=== PATIENT | male | born 2000 | race Caucasian/White ===

== ENCOUNTER 2023-04-25 16:13 | Outpatient (CLI) | payer BC, SELFPAY | END 2023-04-25 16:14 | disposition home or self-care (01) | PROVIDERS: PCP Family Medicine; Visit Provider Family Medicine | DX: E10.9 Type 1 diabetes mellitus without complications (principal); R53.83 Other fatigue | CPT/HCPCS: 80048; 80061; 84443 ==

== ENCOUNTER 2024-02-06 13:49 | Outpatient (CLI) | payer BC, SELFPAY ==
[2024-02-06 21:48] LABS: Creatinine Urine 94.8 mg/dL
[2024-02-06 21:53] LABS: Microalbumin Creatinine Ratio 10 mg/g (0-30); Microalbumin Urine 1 mg/dL
== END 2024-02-06 13:50 | disposition home or self-care (01) ==
PROVIDERS: PCP Family Medicine; Visit Provider Family Medicine
DX: E05.00 Thyrotoxicosis with diffuse goiter without thyrotoxic crisis or storm (principal); E10.9 Type 1 diabetes mellitus without complications; Z79.4 Long term (current) use of insulin
CPT/HCPCS: 80048; 82043; 82570; 84439; 84443

== ENCOUNTER 2024-09-16 20:42 | Emergency (ER) | payer BC, SELFPAY ==
[2024-09-16] VITALS (20 sets, daily range): BP systolic 148; BP diastolic 88; PULSE 96–122; RESP 10–113; TEMP 38.1; O2SAT 95–99; BMI 22.0
--- OUTSIDE RECORDS SUMMARY | 2024-09-16 20:44 | XMS_ITS | Clinical Summary ---
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 1 box 0 4 Active CONTOUR NEXT STRIPS strip USING UP TO 6 TEST STRIPS PER DAY TO CHECK BLOOD SUGAR. USE WITH MEDTRONIC PUMP 11 6 Active ergocalciferol (VITAMIN D2; DRISDOL) 50,000 unit capsule TK 1 C PO Q WEEK 0 6 Active NOVOLOG U-100 INSULIN ASPART 100 unit/mL injection 8 Active ACCU-CHEK FASTCLIX TESTS 6 TIMES PER DAY 11 8 Active methIMAzole (TAPAZOLE) 5 mg tablet 8 Active VITAMIN D-3 2,000 unit capsule TK 1 C PO ONCE A DAY 2 9 Active naproxen (NAPROSYN) 500 mg tablet Take 500 mg by mouth 2 times daily. 1 Active Glucagon Emergency Kit, human, 1 mg injection INJECT 1MG IN THE MUSCLE FOR SEVERE HYPOGLYCEMIA 1 Active Active Problems Problem Noted Date Diagnosed Date Onychocryptosis 06/29/2016 Diabetes mellitus type 1 01/17/2013 Overview (11/09/2013): diagnosed age 13 -managed by [facility] Immunizations Immunization Administration Dates Next Due AMB Influenza, IIV3 (Age >=3 years)(Flu Clinic O nly) 02/04/2009 DTaP 06/11/2004,01/30/2002 [id number] (Pediarix) 2000,2000 HIB PRP-T (ActHIB,Hiberix) 2000,2000 HIB-HepB (Comvax) 01/30/2002 Hepatitis A (Peds) 11/09/2013 Inactivated Polio Vaccine 06/11/2004 Influenza A (H1N1), Inactivated (Age >=3 Years) 02/04/2009,02/04/2009 Influenza, IIV4 11/09/2013,02/04/2009 MENINGOCOCCAL VACCINE 2 VIAL [id number] (MENVEO) 0 11/09/2013 MMR 06/11/2004,01/30/2002 Tdap 10/24/2012 Varicella Vaccine 10/24/2012,06/11/2004 Family History Medical History Relation Name Comments Other Maternal Grandmother lupus Thyroid Disease Maternal Grandmother hypo Heart Disease Maternal Uncle Relation Name Status Comments Maternal Grandmother Maternal Uncle Social History Tobacco Use Types Packs/Day Years Used Date Smoking Tobacco: Passive Smo ke Exposure - Never Smoker Smokeless Tobacco: Never Comments:mom smokes in the h ouse, tries not too Alcohol Use Standard Drinks/Week Comments No 0 (1 standard drink = 0.6 oz pur e alcohol) Sex and Gender Information Value Date Recorded Sex Assigned at Not on file Legal Sex Male 5:42 AM 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 Gender Identity Not on file Sexual Orientation Not on file 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 Industry 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 FMS Not on file Not on file Not on file Obstetrics History Last Filed Vital Signs Vital Sign Reading Time Taken Comments Blood Pressure 160/101 01/07/2021 7:22 PM 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 Pulse 74 01/07/2021 7:22 PM 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 Temperature 37 C (98.6 F) 01/07/2021 7:22 PM 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 Respiratory Rate 16 01/07/2021 7:22 PM 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 Oxygen Saturation 97% 01/07/2021 7:22 PM 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 Inhaled Oxygen Concentration - - Weight 68 kg (150 lb) 01/07/2021 7:22 PM 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 Height 172.7 cm (5' 8) 01/07/2021 7:22 PM 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 Body Mass Index 22.81 01/07/2021 7:22 PM 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 Plan of Treatment Health Maintenance Due Date Last Done Comments Depression screening for age 12+ 2012 HIV for age 15-65 01/15/2015 HPV series for age 9-26 (1 - Male 3-dose series) 01/15/2015 BMI (ht and wt on same day) for age 18+ 01/15/2018 Hepatitis C screening for age 18-79 01/15/2018 Pneumococcal series for age 6-49 (1 of 2 - PCV) 01/15/2019 Tetanus booster 10/24/2022 10/24/2012 COVID-19 vaccine series (3 - season) 2023 04/07/2022, 03/16/2022 Influenza Vaccine (#1) 2024 4, 02/04/2009, 02/04/2009 Hepatitis B series for 19+ Completed 01/30, 2000, 2000 Insurance [facility] [place] Care Teams 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
--- NOTE | 2024-09-16 21:11 | ED.NURSE ---
Pt has vomited all over his room, doctor is aware of high blood sugar reading from POC glucose. Pt has detached his blood sugar monitor and it is sitting by him on his table in his room.
[2024-09-16 21:14] LABS: Hematocrit 43.1 % (37.0-53.0); Hemoglobin* 14.9 gm/dL (13.5-17.5); Immature Granulocytes Abs Auto 0.01 K/uL (0.00-0.30); Immature Granulocytes Pct Auto 0.1 %; Mean Corpuscular HGB Conc 35 gm/dL (32-36); Mean Corpuscular Hemoglobin 32 pg (26-34); Mean Corpuscular Volume 92 fL (80-100); RDW Coefficient of Variation % 11.7 % (11.5-15.5); Red Blood Count 4.69 m/uL (4.30-5.90); White Blood Count* 9.16 K/uL (4.50-11.00)
[2024-09-16 21:15] LABS: Appearance Urine Clear (Clear)
[2024-09-16 21:16] LABS: Lymphocytes Absolute Auto 1.20 K/uL (0.90-2.90); Slide Review Reflex No
--- NOTE | 2024-09-16 21:19 | ED_ITS ---
HPI - General Adult General Date Seen: 09/16/24 Chief complaint: Diabetic Related Problem Stated complaint: low blood sugar Time Seen by Provider: 09/16/24 20:59 Source: patient Mode of arrival: ambulatory Limitations: no limitations History of Present Illness HPI narrative: Patient is a 24-year-old male with a history of type 1 diabetes mellitus who has an insulin pump presenting to the emergency department for hypoglycemia. He states for the past day his monitor keeps reading between 50 and 70 despite him trying to carb load and not given him any further basal doses of insulin. He states his pump has not been given any insulin either due to the low blood sugar. He has been feeling lightheaded and due to this persisting decided to come to the emergency department. Here his blood sugar got to as low as 40 according to his monitor. He denies any chest pain or shortness of breath. Does have a fever in triage of 100.5. Denies headache, vision changes, abdominal pain, diarrhea, constipation. States he changes his injection site every 3-5 days and last changed 3 days ago. Has never had issues like this before he states. Does not see an crochet beader but does follow-up with his primary care provider for all blood sugar issues. Related Data Home Medications ?Medication ?Instructions ?Recorded ?Confirmed blood sugar diagnostic (Contour #10 ea 04/25/23 Next Test Strips) Previous Rx's ?Medication ?Instructions ?Recorded insulin aspart U-100 100 unit/mL 100 unit subcut QDAY #40 mL 02/06/24 subcutaneous solution metoclopramide HCl 10 mg tablet 5 - 10 mg (0.5 - 1 x 1 0 mg) PO BID 02/06/24 PRN nausea and vomiting #60 tabs blood-glucose sensor (Dexcom G6 #9 ea 03/12/24 Sensor device) blood-glucose transmitter (Dexcom #1 ea 03/12/24 G6 Transmitter device) blood sugar diagnostic (Accu-Chek #25 ea 09/16/24 Guide test strips) insulin glargine-yfgn 100 unit/mL 18 unit (0.18 mL) daily bcut QPM #10 mL 09/16/24 subcutaneous solution Allergies Allergy/AdvReac Type Severity Reaction Status Date / Time No Known Drug Allergies Allergy Verified 09/16/24 21:46 Review of Systems Status of ROS: Reports: 10 or more systems reviewed and unremarkable except as noted in History and below [facility] Medical History Testicular cyst ?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.2 - Benign cyst of testis (ICD-10) Type 1 diabetes mellitus (12/2012) ?E10.9 - Type 1 diabetes mellitus without complications (ICD-10) Graves' disease (06/2016) ?E05.00 - Thyrotoxicosis with diffuse goiter without thyrotoxic crisis or storm (ICD-10) Family History Maternal Grandmother Thyroid disease Lupus Uncle Heart disease Social History Narrative: Single, no kids, 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 [place] What is your current living situation?: I presently have a place to live Problems where you live: no known problems In the past 12 months, utilities in danger of being shut off: no In past 12 months, lack of transportation kept you from medical appts, meetings, work, or getting things needed for daily living: no In the past 12 mos, have been you worried that your food would run out before you had money to buy more?: never true In the past 12 mos, the food you bought just didn't last and you didn't have money to buy more?: never true Smoking Status: Never smoker Do you use any of these nicotine containing products: None and Vaping Products Second hand tobacco smoke exposure: No How often do you have a drink containing alcohol: never AUDIT-C Alcohol total score: 0 Non-prescribed substance use: denies use How often does anyone, including family, friends and others, physically hurt you : never How often does anyone, including family, friends and others, insult or talk down to you: sometimes How often does anyone, including family, friends and others, threaten you with harm: never How often does anyone, including family, friends and others, scream or curse at you: sometimes service: No Health Related Social Needs: Other personal risk factors, not elsewhere classified (Z91.89) Exam Narrative: Exam Narrative: Const: Well-nourished, Well-developed, in mild distress Eyes: PERRL, no conjunctival injection, and symmetrical lids HENT: Atraumatic external nose and ears. Moist mucous membranes. Neck: Symmetric, trachea midline, No thyromegaly. CVS: Tachycardic, No murmurs or gallops. Peripheral pulses 2+ and equal in all extremities RESP: Unlabored respiratory effort. Clear to auscultation bilaterally. GI: Nontender/Nondistended, No rebound or guarding. MSK:Extremities w/o deformity, Normal Active ROM Skin: Warm, Dry. No rashes or lesions. Neuro: Normal Muscle tone, No focal neurological deficits. Psych: Awake, Alert, & Oriented x3. Appropriate mood and affect. Const: Vital Signs, click to edit/add: Vital Signs - 24 hr 09/16/24 20:53 09/16/24 21:26 09/16/24 21:29 Temperature 100.5 F H Pulse Rate Pulse Rate [Right Pulse Oximeter] 122 H Respiratory Rate 20 11 L 20 Blood Pressure [Ri ght Upper Arm] 148/88 H Pulse Oximetry 98 97 Oxygen Delivery Me thod Room Air 09/16/24 21:30 09/16/24 21:40 09/16/24 21:45 Temperature Pulse Rate Pulse Rate [Right Pulse Oximeter] Respiratory Rate 46 H 12 36 H Blood Pressure [Ri ght Upper Arm] Pulse Oximetry 98 98 Oxygen Delivery Me thod 09/16/24 21:50 09/16/24 22:22 09/16/24 22:23 Temperature Pulse Rate Pulse Rate [Right Pulse Oximeter] Respiratory Rate 17 27 H 12 Blood Pressure [Ri ght Upper Arm] Pulse Oximetry 98 97 98 Oxygen Delivery Me thod 09/16/24 22:30 09/16/24 22:40 09/16/24 22:45 Temperature Pulse Rate 96 Pulse Rate [Right Pulse Oximeter] Respiratory Rate 113 H 10 L 25 H Blood Pressure [Ri ght Upper Arm] Pulse Oximetry 95 97 98 Oxygen Delivery Me thod 09/16/24 22:50 09/16/24 23:06 09/16/24 23:10 Temperature Pulse Rate 97 Pulse Rate [Right Pulse Oximeter] Respiratory Rate 27 H 28 H 19 Blood Pressure [Ri ght Upper Arm] Pulse Oximetry 99 97 98 Oxygen Delivery Me thod 09/16/24 23:15 09/16/24 23:20 09/16/24 23:30 Temperature Pulse Rate 97 Pulse Rate [Right Pulse Oximeter] Respiratory Rate 36 H 58 H 12 Blood Pressure [Ri ght Upper Arm] Pulse Oximetry 97 98 96 Oxygen Delivery Me thod 09/16/24 23:40 09/16/24 23:45 Temperature Pulse Rate 99 Pulse Rate [Right Pulse Oximeter] Respiratory Rate 20 20 Blood Pressure [Ri ght Upper Arm] Pulse Oximetry 96 98 Oxygen Delivery Me thod Course Vital Signs Vital signs: Initial Vital Signs Temperature 100.5 F H 09/16/24 20:53 Temperature Source Temporal Artery Scan 09/16/24 20:53 Pulse Rate 122 H 09/16/24 20:53 Pulse Rhythm Regular 09/16/24 20:53 Pulse Strength 3+ Normal 09/16/24 20:53 Respiratory Rate 20 09/16/24 20:53 Blood Pressure 148/88 H 09/16/24 20:53 Blood Pressure Mean 108 H 09/16/24 20:53 Blood Pressure Position Supine 09/16/24 20:53 Pulse Oximetry 98 09/16/24 20:53 Oxygen Delivery Method Room Air 09/16/24 20:53 Vital Signs Temperature 100.5 F H 09/16/24 20:53 Pulse Rate 122 H 09/16/24 20:53 Respiratory Rate 20 09/16/24 20:53 Blood Pressure 148/88 H 09/16/24 20:53 Pulse Oximetry 98 09/16/24 20:53 Oxygen Delivery Method Room Air 09/16/24 20:53 Temperature 100.5 F H 09/16/24 20:53 Pulse Rate 99 09/16/24 23:45 Respiratory Rate 20 09/16/24 23:45 Blood Pressure 148/88 H 09/16/24 20:53 Pulse Oximetry 98 09/16/24 23:45 Oxygen Delivery Method Room Air 09/16/24 20:53 Medications Administered Medications: Discontinued Medications Generic Name Dose Route Start Last Admin Trade Name Freq PRN Reason Stop Dose Admin Dextrose 25 gm 09/16/24 20:58 09/16/24 21:23 Dextrose 50 % Syringe IVP 09/16/24 20:59 25 gm ONCE ONE Administration Sodium Chloride 1,000 mls @ 1,000 mls/hr 09/16/24 21:15 09/16/24 23:10 0.9 % Sodium Chloride 1000 Ml IV 09/16/24 22:14 1,000 mls/hr .Q1H TILA Administration Insulin Human Regular 10 unit 09/16/24 21:36 09/16/24 22:17 Insulin Regular, Human 100 Unit/Ml Vial IVP 09/16/24 21:37 10 unit ONCE ONE Administration Ondansetron HCl 4 mg 09/16/24 21:32 09/16/24 21:39 Ondansetron 2 Mg/Ml Inj IVP 09/16/24 21:33 4 mg ONCE ONE Administration Medical Decision Making MDM Narrative Medical decision making narrative: Patient is a 24-year-old male presenting for hypoglycemia. I was called to the room informed by nursing staff that his blood sugar was in the 40s. I assume this meant our blood sugar machine. They asked if they could give D50. I okay them to give the amp of D50 due to the hypoglycemia. Will also check a TSH. Was previously told he had Graves disease until his primary care provider evaluated him multiple times for it and states he does not have Graves disease any more. Will also check of BMP, urinalysis, CBC. Will monitor his blood sugars. I had him take off his pump completely. Nursing staff informed me that they checked a blood sugar twice and both times it was greater than 600. Due to this I am concerned about DKA now and will add on a VBG. Fluids were given. Will hold off on insulin until we get the official lab result for the blood sugar. BMP blood sugar was 707. 10 units of insulin given. Will continue to monitor. Another L of fluids was given. Once he was told he was hyperglycemic he started vomiting a couple times and Zofran was given. He states it felt like the monitor telling him he was hypoglycemic was causing a placebo effect and he suddenly became nauseated once he learned he was hyperglycemic. He is feeling better now. Rest of his labs do not show signs of DKA. He does have a pseudohyponatremia. Heart rate has improved to high 90s, temp is 99.2?, respirations 20. Repeat blood sugar was 442. We are pending 1 more L of fluids. I did speak to him and his mother about admission versus discharge. This time they feel comfortable discharging home and believe they can manage at home. With how much his blood sugar has improved overall his vital signs have improved I do believe this is reasonable. Did give him a dose of his Lantus. Provided with everything he needs to check his home blood sugar. He has a separate glucose monitor he can use. Will give him prescriptions for Lantus. He states he has NovoLog. He states last time he used Lantus he believes was about 18 units. Will provide this. His final blood sugar was 337. They feel comfortable with this. He will be discharged. Lab Data Labs: Lab Results 09/16/24 09/16/24 09/16/24 Range/Units 20:55 21:10 21:20 WBC 9.16 (4.50-11.00) K/uL RBC 4.69 (4.30-5.90) m/uL Hgb 14.9 (13.5-17.5) gm/dL Hct 43.1 (37.0-53.0) % MCV 92 (80-100) fL MCH 32 (26-34) pg MCHC 35 (32-36) gm/dL RDW Coeff of Yifan 11.7 (11.5-15.5) % Plt Count 206 (140-440) K/uL Neut % (Auto) 82.0 H (42.0-72.0) % Lymph % (Auto) 12.7 L (20-44) % [place] % (Auto) 5.0 (0.0-11.0) % Eos % (Auto) 0.0 (0.0-7.0) % Baso % (Auto) 0.2 (0.0-3.0) % Neut # (Auto) 7.50 H (1.7-7.0) K/uL Lymph # (Auto) 1.20 (0.90-2.90) K/uL [place] # (Auto) 0.50 (0.00-0.90) K/UL Eos # (Auto) 0.00 (0.00-0.50) K/uL Baso # (Auto) 0.02 (0.00-0.30) K/uL Abs Immat Gran (auto) 0.01 (0.00-0.30) K/uL Imm/Tot Granulo (auto) 0.1 % VBG pH (7.32-7.43) VBG pCO2 (40-50) mmHG VBG pO2 (25-47) mmHG VBG HCO3 (21-28) mmol/L Sodium 127 L (135-149) mmol/L Potassium 4.7 (3.6-5.1) mmol/L Chloride 94 L (96-114) mmol/L Carbon Dioxide 19 L (20-32) mmol/L Anion Gap 14 (7-15) mEq/L BUN 12 (5-24) mg/dL Creatinine 0.9 (0.5-1.5) mg/dL Estimated Creat Clear 117.74 Estimated GFR 122 ml/min Glucose 707 H* (60-115) mg/dL Calcium 9.7 (8.4-10.6) mg/dL TSH Cancelled 1.640 Urine Color Yellow (Yellow) Urine Appearance Clear (Clear) Urine pH 5.5 (5.0-8.5) Ur Specific [place] <= 1.005 (1.000-1.030) Urine Protein Negative (Negative) Urine Glucose (UA) 3+ A (Negative) Urine Ketones 2+ A (Negative) Urine Blood Negative (Negative) Urine Nitrite Negative (Negative) Urine Bilirubin Negative (Negative) Urine Urobilinogen 0.2 (0.2-1.0) Ur Leukocyte Esterase Negative (Negative) Urine RBC 0-2 (0-2) Urine WBC 0-2 (0-5) Ur Squamous Epith Cells None (None-Few) Urine Bacteria None (None) Lab Acknowledgement Test Added 09/16/24 Range/Units 21:25 WBC (4.50-11.00) K/uL RBC (4.30-5.90) m/uL Hgb (13.5-17.5) gm/dL Hct (37.0-53.0) % MCV (80-100) fL MCH (26-34) pg MCHC (32-36) gm/dL RDW Coeff of Yifan (11.5-15.5) % Plt Count (140-440) K/uL Neut % (Auto) (42.0-72.0) % Lymph % (Auto) (20-44) % [place] % (Auto) (0.0-11.0) % Eos % (Auto) (0.0-7.0) % Baso % (Auto) (0.0-3.0) % Neut # (Auto) (1.7-7.0) K/uL Lymph # (Auto) (0.90-2.90) K/uL [place] # (Auto) (0.00-0.90) K/UL Eos # (Auto) (0.00-0.50) K/uL Baso # (Auto) (0.00-0.30) K/uL Abs Immat Gran (auto) (0.00-0.30) K/uL Imm/Tot Granulo (auto) % VBG pH 7.339 (7.32-7.43) VBG pCO2 36 L (40-50) mmHG VBG pO2 57.2 H (25-47) mmHG VBG HCO3 20 L (21-28) mmol/L Sodium (135-149) mmol/L Potassium (3.6-5.1) mmol/L Chloride (96-114) mmol/L Carbon Dioxide (20-32) mmol/L Anion Gap (7-15) mEq/L BUN (5-24) mg/dL Creatinine (0.5-1.5) mg/dL Estimated Creat Clear Estimated GFR ml/min Glucose (60-115) mg/dL Calcium (8.4-10.6) mg/dL TSH Urine Color (Yellow) Urine Appearance (Clear) Urine pH (5.0-8.5) Ur Specific [place] (1.000-1.030) Urine Protein (Negative) Urine Glucose (UA) (Negative) Urine Ketones (Negative) Urine Blood (Negative) Urine Nitrite (Negative) Urine Bilirubin (Negative) Urine Urobilinogen (0.2-1.0) Ur Leukocyte Esterase (Negative) Urine RBC (0-2) Urine WBC (0-5) Ur Squamous Epith Cells (None-Few) Urine Bacteria (None) Lab Acknowledgement ECG Data Attestation: I personally reviewed and interpreted this ECG as follows: Prior ECG tracings: not available for review Interpretation: Sinus tachycardia with a rate of 119 beats per minute, normal intervals, normal axis, no ST or T-wave abnormalities Discharge Plan Discharge Clinical Impression: Acute hyperglycemia Patient Disposition: Home, Self-Care Condition: Improved Instructions: Diabetic Hyperglycemia (ED) Additional Instructions: Make sure to monitor your blood sugars regularly until they are stable. Do not reuse the pump until it is calibrated correctly. If he develops worsening nausea, abdominal pain, shortness of breath or any other concerning symptoms please return for re-evaluation. Sent a prescription for the test strips and Lantus your pharmacy. Prescriptions: New (DME) Accu-Chek Guide test strips Strip See Rx Instructions .Route Qty: 25 0RF Rx Instructions: As directed insulin glargine-yfgn 100 unit/mL solution 18 unit subcut QPM Qty: 10 2RF No Action insulin aspart U-100 100 unit/mL solution 100 unit subcut QDAY Qty: 40 5RF Rx Instructions: 100 units daily per insulin pump metoclopramide HCl 10 mg tablet 5 - 10 mg PO BID PRN (Reason: nausea and vomiting) Qty: 60 1RF Rx Instructions: Take 30 before lunch and supper (DME) Contour Next Test Strips Strip See Rx Instructions .ROUTE .MEDSUPPLY Qty: 10 Patient Comments: TEST 8 TIMES DAILY Rx Instructions: As directed (DME) Dexcom G6 Transmitter Device See Rx Instructions .ROUTE DIRECTED Qty: 1 3RF Rx Instructions: Change every 3 months (DME) Dexcom G6 Sensor Device See Rx Instructions .ROUTE Q10D Qty: 9 3RF Rx Instructions: Change very 2 weeks Follow Up/Referrals: Adrien Holland MD [Primary Care Provider, Family Practice] Stand Alone Forms: Health system Info Instructions Procedures ABG Interpretation ABG Results: 09/16/24 21:25 VBG pH 7.339 VBG pCO2 36 L VBG pO2 57.2 H VBG HCO3 20 L
[2024-09-16 21:23] LABS: Chloride* 94 mmol/L (96-114); Potassium* 4.7 mmol/L (3.6-5.1); Sodium* 127 mmol/L (135-149)
[2024-09-16] MEDS: DEXTROSE 50 % SYRINGE IVP (21:23)
[2024-09-16 21:26] LABS: Anion Gap 14 mEq/L (7-15); Blood Urea Nitrogen* 12 mg/dL (5-24); Carbon Dioxide* 19 mmol/L (20-32); Creatinine* 0.9 mg/dL (0.5-1.5); Est. Creatinine Clearance* 117.74; Estimated Glomerular Filt Rate 122 ml/min
[2024-09-16 21:27] LABS: Calcium* 9.7 mg/dL (8.4-10.6)
[2024-09-16 21:27] LABS: HCO3 VBG 20 mmol/L (21-28); PCO2 VBG 36 mmHG (40-50); PO2 VBG 57.2 mmHG (25-47); pH VBG 7.339 (7.32-7.43)
[2024-09-16] MEDS: ONDANSETRON 2 MG/ML inj 4 MG IVP (21:39)
[2024-09-16 22:11] LABS: TSH With Reflex to FT4* 1.640 uIU/mL (0.270-4.200)
[2024-09-16] MEDS: INSULIN REGULAR, HUMAN 100 UNIT/ML VIAL 10 UNIT IVP (22:17)
[2024-09-16 23:06] LABS: Glucose* 707 mg/dL (60-115)
[2024-09-17 00:02] VITALS: BP 113/76; PULSE 86; RESP 18; TEMP 37.3
== END 2024-09-17 00:19 | disposition home or self-care (01) ==
PROVIDERS: Emergency Provider Student in an Organized Health Care Education/Training Program; PCP Family Medicine
DX: E10.649 Type 1 diabetes mellitus with hypoglycemia without coma (principal)
CPT/HCPCS: 36415; 80048; 81001; 82803; 82962; 84443; 85025; 93005; 94761; 96374; 99284; J1815; J2405; J7030